=== PATIENT | female | born 1960 | race Caucasian/White ===

== ENCOUNTER 2017-01-10 19:45 | Observation (INO) | payer BC ==
[~2017-01-10] VITALS: Ht 157.5 cm; Wt 85.0 kg
[2017-01-10 19:55] VITALS: BP 185/97; PULSE 73; RESP 16; TEMP 98.3; O2SAT 96
--- NOTE | 2017-01-10 20:06 | PD ---
HPI Chief Complaint: Altered Mental Status Time Seen by Provider: 19:57 Travel History International Travel<30 days: No Contact w/Intl Traveler<30days: No Traveled to known affect area: No History of Present Illness HPI 56yo F with PMH of HTN brought in by EVAC for altered mental status. As per EVAC, pt's mother visited her today and states she is not herself. Pt states she has been having vivid dreams. States she does not remember the EVAC coming to her house and does not remember what she did today. Pt is AAOx3 and denies any fever, headache, visual changes, chest pain, sob, vomiting, abdominal pain, focal weakness or numbness. Pt does have some nausea. Pt has never been here before and denies any suicidal or homicidal ideation, visual or auditory hallucinations. Denies any drugs or alcohol. EVAC states last normal was 2 days ago when her mother saw her. PFSH Past Medical History Hypertension: Yes Tetanus Vaccination: Unknown Influenza Vaccination: No ?: Not Past Surgical History Surgical History: No Previous Surgery Social History Alcohol Use: No Tobacco Use: No Substance Use: No Allergies-Medications (Allergen,Severity, Reaction): Coded Allergies: [place] (Verified Allergy, Severe, 01/10/17) Reported Meds & Prescriptions Reported Meds & Active Scripts Active Active Prescriptions or Reported Medications Unobtainable Review of Systems Except as stated in HPI: all other systems reviewed are Neg Physical Exam Narrative GENERAL: 56yo F not in distress. SKIN: Warm and dry. HEAD: Atraumatic. Normocephalic. EYES: Pupils equal and round at 3mm. EOMI. ENT: No nasal bleeding or discharge. Mucous membranes pink and moist. NECK: Trachea midline. No JVD. CARDIOVASCULAR: Regular rate and rhythm. No murmur appreciated. RESPIRATORY: No accessory muscle use. Clear to auscultation. Breath sounds equal bilaterally. GASTROINTESTINAL: Abdomen soft, non-tender, nondistended. No rebound tenderness or guarding. MUSCULOSKELETAL: No obvious deformities. No clubbing. No cyanosis. No edema. NEUROLOGICAL: Awake and alert. No obvious cranial nerve deficits. Motor grossly within normal limits. Normal speech. Data Data Last Documented VS Vital Signs Date Time Temp Pulse Resp B/P Pulse Ox O2 Delivery O2 Flow Rate FiO2 01/10/17 19:57 Room Air 01/10/17 19:55 98.3 73 16 185/97 96 Orders Ammonia (01/10/17 19:59) Basic Metabolic Panel (Bmp) (01/10/17 19:59) Complete Blood Count With Diff (01/10/17 19:59) Prothrombin Time / Inr (Pt) (01/10/17 19:59) Act Partial Throm Time (Ptt) (01/10/17 19:59) Thyroid Stimulating Hormone (01/10/17 19:59) Urinalysis - C+S If Indicated (01/10/17 19:59) Ct Brain W/O Iv Contrast(Rout) (01/10/17 19:59) Blood Glucose (01/10/17 19:59) Ecg Monitoring (01/10/17 19:59) Iv Access Insert/Monitor (01/10/17 19:59) Drug Screen, Random Urine (01/10/17 19:59) Alcohol (Ethanol) (01/10/17 19:59) Consult Neurology (01/10/17 ) Consult Psychiatry (01/10/17 ) (Hub Use Only)Inp Phy Cons/Ref (01/10/17 ) (Hub Use Only)In Phy Cons/Ref (01/10/17 ) Place In Observation (01/10/17 ) Vital Signs (Adult) Q4H (01/10/17 22:08) Neuro Checks Q4H (01/10/17 22:08) Activity Oob With Assistance (01/10/17 22:08) Diet Heart Healthy (01/11/17 Breakfast) Sodium Chloride 0.9% Flush (Ns Flush) (01/10/17 22:15) Sodium Chloride 0.9% Flush (Ns Flush) (01/11/17 09:00) Case Management Consult (01/10/17 22:08) Scd Bilateral/Knee High SRIRAM.BID (01/10/17 22:08) Naloxone Inj (Narcan Inj) (01/10/17 22:15) Admit Order (Ed Use Only) (01/10/17 22:08) Aspirin (Aspirin) (01/10/17 22:15) Labs Laboratory Tests Test 01/10/17 01/10/17 01/10/17 20:05 21:00 22:00 White Blood Count 9.6 TH/MM3 Red Blood Count 4.64 MIL/MM3 Hemoglobin 14.2 GM/DL Hematocrit 41.1 % Mean Corpuscular Volume 88.6 FL Mean Corpuscular Hemoglobin 30.7 PG Mean Corpuscular Hemoglobin 34.6 % Concent Red Cell Distribution Width 12.9 % Platelet Count 255 TH/MM3 Mean Platelet Volume 9.9 FL Neutrophils (%) (Auto) 74.8 % Lymphocytes (%) (Auto) 17.9 % Monocytes (%) (Auto) 4.9 % Eosinophils (%) (Auto) 1.9 % Basophils (%) (Auto) 0.5 % Neutrophils # (Auto) 7.2 TH/MM3 Lymphocytes # (Auto) 1.7 TH/MM3 Monocytes # (Auto) 0.5 TH/MM3 Eosinophils # (Auto) 0.2 TH/MM3 Basophils # (Auto) 0.0 TH/MM3 CBC Comment DIFF FINAL Differential Comment Sodium Level 138 MEQ/L Potassium Level 4.1 MEQ/L Chloride Level 104 MEQ/L Carbon Dioxide Level 28.2 MEQ/L Anion Gap 6 MEQ/L Blood Urea Nitrogen 15 MG/DL Creatinine 0.78 MG/DL Estimat Glomerular Filtration 76 ML/MIN Rate Random Glucose 113 MG/DL Calcium Level 9.2 MG/DL Ammonia LESS THAN 10 MCMOL/L Thyroid Stimulating Hormone 0.942 uIU/ML 3rd Gen Ethyl Alcohol Level LESS THAN 3 MG/DL Urine Color YELLOW Urine Turbidity CLEAR Urine pH 6.0 Urine Specific [place] 1.012 Urine Protein NEG mg/dL Urine Glucose (UA) NEG mg/dL Urine Ketones TRACE mg/dL Urine Occult Blood NEG Urine Nitrite NEG Urine Bilirubin NEG Urine Urobilinogen LESS THAN 2.0 MG/DL Urine Leukocyte Esterase NEG Urine RBC 1 /hpf Urine WBC LESS THAN 1 /hpf Urine Squamous Epithelial 2 /hpf Cells Urine Mucus FEW /lpf Microscopic Urinalysis Comment CATH-CULT NOT IND Urine Opiates Screen NEG Urine Barbiturates Screen NEG Urine Amphetamines Screen NEG Urine Benzodiazepines Screen NEG Urine Cocaine Screen NEG Urine Cannabinoids Screen POS MDM Medical Decision Making Medical Screen Exam Complete: Yes Emergency Medical Condition: Yes Interpretation(s) EKG: NSR 68bpm. Normal axis. No ST segment elevation or depression. Differential Diagnosis Short term memory loss vs. CVA vs. conversion disorder vs. electrolyte abnormality Narrative Course 56yo F with short term memory loss. As per mother, she called her at 3pm today and came to her house at about 6pm and the pt does not remember the mother calling her. She states she does not remember EVAC bringing her here. Mother states she was normal Monday night when she last saw her. I went to reevaluate her and she does not remember meeting me earlier. No focal neurologic deficits. CT brain negative. Labs reviewed, no leukocytosis. Glucose 113. Ammonia negative. Blood alcohol negative. Neurology and psych consult placed. Discussed with Dr. Jiménez and accepted for observation. Pt given aspirin 325mg PO. Diagnosis Primary Impression: Transient amnesia Admitting Information Admitting Physician Requests: Observation Scripts Unable to Obtain Active Prescriptions or Reported Meds Silvia Rivera DO Jan 10, 2017 20:06
[2017-01-10 20:24] LABS: AUTOMATED NEUTROPHIL # 7.2 TH/MM3 (1.8-7.7); BASOPHIL % 0.5 % (0.0-2.0); EOSINOPHIL # 0.2 TH/MM3 (0-0.4); EOSINOPHIL % 1.9 % (0.0-4.0); HEMATOCRIT 41.1 % (35.0-46.0); LYMPH % 17.9 % (9.0-44.0); LYMPHOCYTE # 1.7 TH/MM3 (1.0-4.8); MEAN CELL VOLUME 88.6 FL (80.0-100.0); MEAN CORPUSCULAR HEMOGLOBIN 30.7 PG (27.0-34.0); MEAN CORPUSCULAR HGB CONC 34.6 % (32.0-36.0); MONO % 4.9 % (0.0-8.0); NEUT % 74.8 % (16.0-70.0); PLATELET COUNT 255 TH/MM3 (150-450); RED BLOOD COUNT 4.64 MIL/MM3 (4.00-5.30); RED CELL DISTRIBUTION WIDTH 12.9 % (11.6-17.2); WHITE BLOOD COUNT 9.6 TH/MM3 (4.0-11.0)
[2017-01-10 20:30] LABS: HEMO FLAGS DIFF FINAL
--- NOTE | 2017-01-10 20:32 | RADRPT ---
EXAM DATE/TIME: 01/10/2017 20:20 [facility] COMPARISON: No previous studies available for comparison. INDICATIONS : Altered mental status. RADIATION DOSE: 36.77 CTDIvol (mGy) MEDICAL HISTORY : Hypertension. SURGICAL HISTORY : None. ENCOUNTER: Initial ACUITY: 1 day PAIN SCALE: 0/10 LOCATION: cranial TECHNIQUE: Multiple contiguous axial images were obtained of the head. Using automated exposure control and adj ustment of the mA and/or kV according to patient size, radiation dose was kept as low as reasonably a chievable to obtain optimal diagnostic quality images. FINDINGS: CEREBRUM: The ventricles are normal for age. No evidence of midline shift, mass lesion, hemorrhage or acute in farction. No extra-axial fluid collections are seen. POSTERIOR FOSSA: The cerebellum and brainstem are intact. The 4th ventricle is midline. The cerebellopontine angle i s unremarkable. EXTRACRANIAL: The visualized portion of the orbits is intact. SKULL: The calvaria is intact. No evidence of skull fracture. CONCLUSION: No acute disease. Kendell Victoria MD on January 10, 2017 at 20:31 Board Certified Radiologist. This report was verified electronically.
[2017-01-10 21:40] LABS: ANION GAP 6 MEQ/L (5-15); BICARBONATE 28.2 MEQ/L (21.0-32.0); BLOOD UREA NITROGEN 15 MG/DL (7-18); CHLORIDE 104 MEQ/L (98-107); GLOMERULAR FILTRATION RATE 76 ML/MIN (>89); POTASSIUM 4.1 MEQ/L (3.5-5.1); SODIUM (NA) 138 MEQ/L (136-145)
[2017-01-10] MEDS ORDERED: NALOXONE HCL 0.4 MG/ML AMP IV PRN (22:15)
[2017-01-10] MEDS ORDERED: SODIUM CHLORIDE 0.9% FLUSH 5 ML FLUSH FLUSH PRN (22:15)
[2017-01-10] MEDS ORDERED: ASPIRIN 325 MG TAB PO ONE (22:15)
[2017-01-10 22:24] LABS: BLOOD, URINE NEG (NEG); GLUCOSE,URINE NEG (NEG); KETONE, URINE TRACE mg/dL (NEG); MUCUS URINE FEW /lpf (OCC); NITRITE,URINE NEG (NEG); SQUAMOUS EPITHELIAL CELL URINE 2 /hpf (0-5); URINE COLOR YELLOW (YELLW/STRAW)
[2017-01-10 22:25] LABS: COMMENT (UR) CATH-CULT NOT IND; CULTURE IF INDICATED CATH CULTURE NOT IND
[2017-01-10 22:35] LABS: AMPHETAMINE, URINE NEG (NEG); BARBITURATES, URINE NEG (NEG); COCAINE, URINE NEG (NEG)
[2017-01-10 22:57] LABS: APTT (PATIENT) 21.8 SEC (24.3-30.1); PROTHROMBIN TIME - PATIENT 10.7 SEC (9.8-11.6)
[2017-01-11 01:39] VITALS: BP 132/78; PULSE 82; RESP 16; O2SAT 100
[2017-01-11] MEDS ORDERED: PROP20TA3 PO (01:45)
[2017-01-11] MEDS ORDERED: LISI30TA4 PO (01:45)
[2017-01-11] MEDS ORDERED: CELE1CAP8 PO (01:45)
[2017-01-11] MEDS ORDERED: ORPH100T PO (01:45)
[2017-01-11] MEDS ORDERED: ULTR50TA5 PO ×2 (01:45→17:05)
[2017-01-11] MEDS ORDERED: SUMA100T2 PO (01:45)
[2017-01-11] MEDS ORDERED: OMEP20TA PO (01:45)
[2017-01-11] MEDS ORDERED: DULO1CAP3 PO (01:45)
[2017-01-11] MEDS ORDERED: TRAZ50TA12 PO (01:45)
[2017-01-11 06:00] VITALS: BP 134/84; PULSE 82; RESP 16; O2SAT 98
[2017-01-11] MEDS ORDERED: PANTOPRAZOLE SOD 20 MG DELAYED RELEASE TAB PO SCH (09:00)
[2017-01-11] MEDS ORDERED: SODIUM CHLORIDE 0.9% FLUSH 5 ML FLUSH FLUSH SCH (09:00)
[2017-01-11] MEDS ORDERED: PROPRANOLOL HCL 20 MG TAB PO SCH (09:00)
[2017-01-11] MEDS ORDERED: LISINOPRIL 10 MG TAB PO SCH (09:00)
[2017-01-11 10:02] VITALS: BP 159/89; PULSE 92; RESP 20; O2SAT 98
[2017-01-11] MEDS ORDERED: FLUT1SPR5 EACH NARE (10:16)
[2017-01-11] MEDS ORDERED: GUAI400T8 PO (10:16)
[2017-01-11] MEDS ORDERED: ROSU40 PO (10:17)
[2017-01-11] MEDS ORDERED: BENA25TA3 PO (10:18)
[2017-01-11] MEDS ORDERED: traMADol HCL 50 MG TAB PO PRN (10:45)
--- NOTE | 2017-01-11 10:47 | HHI.HP ---
[facility] Service [facility] Primary Care Physician No Primary Care Physician Admission Diagnosis Transient amnesia Diagnoses: Chief Complaint: Memory loss Travel History International Travel<30 Days: No Contact w/Intl Traveler <30 Da: No Traveled to Known Affected Are: No History of Present Illness 56-year-old female with past medical history HTN, HLD, depression, fibromyalgia , GERD, migraines, sinusitis who was brought in for altered mental status. The patient does not really recall the events that brought her to the hospital. 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 She has no acute medical complaints today. She is requesting her home medications for chronic sinusitis , headache, fibromyalgia pain. She does smoke marijuana every night for sleep, no other substance use. Denies any family history of Alzheimer's or Parkinson' s. No suicidal or homicidal ideation. Review of Systems Except as stated in HPI: all other systems reviewed are Neg Past Family Social History Past Medical History Hypertension Hyperlipidemia Depression/insomnia Fibromyalgia/chronic pain GERD Migraines Chronic sinusitis Past Surgical History Left leg distal osteochondroma removal [place] teeth removal Reported Medications Benadryl Allergy (Diphenhydramine HCl) 25 Mg Tab 50 Mg PO HS Crestor (Rosuvastatin Calcium) 40 Mg Tab 40 Mg PO HS Flonase Allergy Relief Nasal [place] (Fluticasone Nasal [place]) 50 Mcg/Act [place] 50 Mcg EACH NARE DAILY Guaifenesin 400 Mg Tab 1,200 Mg PO BID Celecoxib 200 Mg Cap 200 Mg PO BID Sumatriptan (Sumatriptan Succinate) 100 Mg Tab 100 Mg PO ONCE PRN If a satisfactory response has not been obtained at 2 hours, a second dose may be administered Orphenadrine ER 12 HR (Orphenadrine Citrate) 100 Mg Tab 100 Mg PO Q12HR Propranolol (Propranolol HCl) 20 Mg Tab 20 Mg PO Q12HR Omeprazole 20 Mg Tab 20 Mg PO DAILY Lisinopril 30 Mg Tab 30 Mg PO DAILY Duloxetine DR (Duloxetine HCl) 60 Mg Capdr 60 Mg PO DAILY Ultram (Tramadol HCl) 50 Mg Tab 200 Mg PO Q6H PRN Trazodone (Trazodone HCl) 50 Mg Tab 50 Mg PO HS Allergies: Coded Allergies: [place] (Verified Allergy, Severe, 01/11/17) Active Ordered Medications Current Medications Medications (Trade) Dose Ordered Sig/Nicola Route Start Time Stop Time Status Last Admin (NS Flush) 2 ml UNSCH PRN FLUSH 01/10/17 22:15 (NS Flush) 2 ml BID FLUSH 01/11/17 09:00 01/11/17 09:14 (Narcan Inj) 0.4 mg UNSCH PRN IV 01/10/17 22:15 (Prinivil) 30 mg DAILY PO 01/11/17 09:00 01/11/17 10:13 (Protonix) 20 mg DAILY PO 01/11/17 09:00 01/11/17 10:12 (Inderal) 20 mg Q12HR PO 01/11/17 09:00 01/11/17 10:12 Family History Father had rheumatoid arthritis, CVA, AAA Mother had TIA Social History Denies alcohol or tobacco use Marijuana use Physical Exam Vital Signs Vital Signs Date Time Temp Pulse Resp B/P Pulse Ox O2 Delivery O2 Flow Rate FiO2 01/11/17 10:02 92 20 159/89 98 Room Air 01/11/17 06:00 82 16 134/84 98 Room Air 01/11/17 01:39 82 16 132/78 100 Room Air 01/10/17 19:57 Room Air 01/10/17 19:55 98.3 73 16 185/97 96 Physical Exam GENERAL: Well-developed well-nourished. In no acute distress. SKIN: Warm and dry. No lesions noted. HEENT: Normocephalic. Pupils equal and round. EOMs intact. Mucous membranes pink and moist. CARDIOVASCULAR: Regular rate and rhythm. No murmur appreciated. RESPIRATORY: No accessory muscle use. Clear to auscultation. Breath sounds equal bilaterally. GASTROINTESTINAL: Abdomen soft, non-tender, nondistended. Bowel sounds x4. MUSCULOSKELETAL: No obvious deformities. No clubbing or cyanosis. No edema. NEUROLOGICAL: Awake and alert and oriented. No focal neurological deficits. Moves upper and lower extremities spontaneously. Normal speech. Strength 5/5. Cranial nerves intact. PSYCHIATRIC: Pleasant mood and affect; insight and judgment normal. No SI or HI. Mini-Mental status exam performed personally by Dr. Chavez, Laboratory Laboratory Tests Test 01/10/17 01/10/17 01/10/17 01/10/17 20:05 21:00 22:00 22:15 White Blood Count 9.6 Red Blood Count 4.64 Hemoglobin 14.2 Hematocrit 41.1 Mean Corpuscular Volume 88.6 Mean Corpuscular Hemoglobin 30.7 Mean Corpuscular Hemoglobin 34.6 Concent Red Cell Distribution Width 12.9 Platelet Count 255 Mean Platelet Volume 9.9 Neutrophils (%) (Auto) 74.8 Lymphocytes (%) (Auto) 17.9 Monocytes (%) (Auto) 4.9 Eosinophils (%) (Auto) 1.9 Basophils (%) (Auto) 0.5 Neutrophils # (Auto) 7.2 Lymphocytes # (Auto) 1.7 Monocytes # (Auto) 0.5 Eosinophils # (Auto) 0.2 Basophils # (Auto) 0.0 CBC Comment DIFF FINAL Differential Comment Sodium Level 138 Potassium Level 4.1 Chloride Level 104 Carbon Dioxide Level 28.2 Anion Gap 6 Blood Urea Nitrogen 15 Creatinine 0.78 Estimat Glomerular Filtration 76 Rate Random Glucose 113 Calcium Level 9.2 Ammonia LESS THAN 10 Thyroid Stimulating Hormone 0.942 3rd Gen Ethyl Alcohol Level LESS THAN 3 Urine Color YELLOW Urine Turbidity CLEAR Urine pH 6.0 Urine Specific [place] 1.012 Urine Protein NEG Urine Glucose (UA) NEG Urine Ketones TRACE Urine Occult Blood NEG Urine Nitrite NEG Urine Bilirubin NEG Urine Urobilinogen LESS THAN 2.0 Urine Leukocyte Esterase NEG Urine RBC 1 Urine WBC LESS THAN 1 Urine Squamous Epithelial 2 Cells Urine Mucus FEW Microscopic Urinalysis Comment CATH-CULT NOT IND Urine Opiates Screen NEG Urine Barbiturates Screen NEG Urine Amphetamines Screen NEG Urine Benzodiazepines Screen NEG Urine Cocaine Screen NEG Urine Cannabinoids Screen POS Prothrombin Time 10.7 Prothromb Time International 1.0 Ratio Activated Partial 21.8 Thromboplast Time Result Diagram: 01/10/17200401/10/172099 Imaging Last Impressions Head CT 01/10/171958 Signed Impressions: Service Date/Time: Tuesday, January 10, 2017 20:20 - CONCLUSION: No acute disease. Kendell Victoria MD Assessment and Plan Problem List: (1) At risk for polypharmacy ICD Code: Z91.89 Status: Acute (2) Transient amnesia ICD Code: R41.3 Status: Acute (3) Memory difficulties ICD Code: R41.3 Status: Acute Assessment and Plan 56-year-old female with past medical history HTN, HLD, depression, fibromyalgia , GERD, migraines, sinusitis who was brought in for altered mental status Memory loss, acute on chronic: Unclear etiology. Possibly secondary to overmedication and MJ. Laboratory workup essentially unremarkable to date. Head CT revealed no acute process. Neurology consulted, appreciate input, ordered a brain MRI, neck MRA, and EEG. Check B12 and RPR. Neuro checks. Chronic pain/fibromyalgia: Patient requesting home tramadol 200 mg daily. We will decrease the 50 mg every 8 hours as needed to avoid sedation. Hold Norflex as well, ideally this will be when necessary instead of scheduled at home. Continue Celebrex. Chronic sinusitis: Continue fluticasone and guaifenesin. Depression/insomnia: Hold home fluoxetine, trazodone, Benadryl for now with possible medication effect as above. Psychiatry has been consulted. Hypertension/hyperlipidemia: BP is reasonably controlled. Continue home lisinopril and propranolol. Continue statin. DVT prophylaxis: SCDs GI prophylaxis: PPI Disposition: The patient feels well and is asking to go home. Discussed with the patient, will need neurology clearance prior to discharge. Addendum 1700: The patient was seen by neurology, who recommended MRI/MRA and EEG. EEG normal. MRI with nonspecific, likely benign finding, recommended repeat MRI in 6 months, patient informed. Neck MRA with no stenosis. Neurology recommended if these findings were negative, to follow up with him as outpatient in couple of weeks. Discussed with Dr. Welch, within the ED from psychiatry perspective. Discussed with Dr. Chavez, will discharge today. Discussed with patient and family and RN at bedside happy to be discharged today. Requested PCP referral as the patient's PCP is in [place]. Home med list was updated, patient educated on polypharmacy, med rec adjusted and patient informed to follow-up with PCP for continued monitoring. Written by Doe Daniels, acting as scribe for Dr. Chavez on 01/11/17 at 10:47. The documentation accurately reflects the work performed [id number] by me on at 10:47 Discharge patient to home Condition on discharge: Improved Regular Diet as tolerated Ad Cici activity Rx written: None. Tramadol changed to 100mg Q6hrs, reduced from 200mg Q6hrs. Follow-up with primary care physician within a week and Neurology within two weeks. Discussed Condition With Patient, ED Doe Burton Jan 11, 2017 10:47 Donte Chavez DO Jan 11, 2017 22:41
[2017-01-11] MEDS ORDERED: guaiFENesin E.R. 600 MG TAB PO SCH (11:00)
[2017-01-11] MEDS ORDERED: FLUTICASONE PROPIONATE 50 MCG/ACT 16 GM NASAL SPRAY EACH NARE SCH (11:00)
--- NOTE | 2017-01-11 11:50 | MB ---
cc: PAULO CAMARILLO M.D. DATE OF CONSULTATION: 01/11/2017 REASON FOR CONSULTATION A 56-year-old woman seen with altered mental status and memory loss. HISTORY OF PRESENT ILLNESS She came in yesterday. I have limited information on her. It is described that her mother visited her and the patient did not seem to be herself. She has been having vivid dreams. The patient only knows that she was apparently walking in a [place]de[place]sac where she lives and she does not know anymore than that. She lives alone with her dog. She has a who lives in [place]. She apparently spends six months here and six months there. There is a history of some depression and she takes Cymbalta for that, but does not follow with a psychiatrist. She takes lisinopril and Inderal as well. IMAGING The patient's CT brain was normal. LABORATORY CBC was normal. Chemistry was essentially normal with a glucose of 113. Urine toxicology positive for cannabinoids. Urinalysis negative. NEUROLOGIC EXAMINATION Neurologic exam is essentially normal at this point. She is alert, pleasant and oriented in no distress. Ocular movements and visual noel full. Reflexes 1-2+ throughout and plantar response is flexor. ASSESSMENT Though I have some limited information on what happened, it is likely that she had transient global amnesia. RECOMMENDATIONS Will request an MRI brain, MRA neck or carotid ultrasound on this patient and if these studies are unremarkable then she could be discharged to home with follow-up in the office in a couple of weeks. An EEG will be requested as well. Thank you for asking us to assist in her care. MD MOHSEN Casas/BT /10:39 AM /11:42 AM
[2017-01-11] MEDS ORDERED: CELECOXIB 200 MG CAP PO SCH (12:00)
--- NOTE | 2017-01-11 12:42 | MG ---
cc: AUDELIA LIN Lab No: [id number] Date: 01/11/2017 Age: Sex: F Race: TECHNIQUE 17-channel EEG. DESCRIPTION: The background rhythm shows a symmetrical alpha rhythm frequency of 8-9 Hz, amplitude is about 20 microvolts. There is fairly frequent beta activity which is probably medication effect. Sharp activity which appears to be mainly muscle artifact. I do not see any true epileptiform features. Hyperventilation was done with no change in background rhythm. Photic results in a fairly symmetric driving response. INTERPRETATION Normal EEG. There is sharp activity but I think this is mainly muscle artifact, not truly epileptiform in nature. MD JOSE Truong/ETHEL /12:35 PM /12:39 PM
[2017-01-11 13:23] VITALS: BP 164/84; PULSE 83; RESP 15; O2SAT 99
--- NOTE | 2017-01-11 15:16 | RADRPT ---
EXAM DATE/TIME: 01/11/2017 14:15 [facility] COMPARISON: CT BRAIN W/O CONTRAST, January 10, 2017, 20:20. INDICATIONS : Memory loss. CONTRAST: 20 cc Omniscan (gadodiamide) IV MEDICAL HISTORY : Hypertension. SURGICAL HISTORY : Left knee surgery. ENCOUNTER: Initial ACUITY: 2 day PAIN SCORE: 0/10 LOCATION: head TECHNIQUE: Multiplanar, multisequence MRI of the brain was performed both prior to and following the administrat ion of paramagnetic contrast. FINDINGS: The examination demonstrates a 1.2 x 1.4 cm well-circumscribed extra-axial mass along the medial aspe ct of the anterior temporal lobe on the right. There is no evidence of contrast enhancement within th is following contrast administration. I believe this probably represents an exostosis off the medial aspect of the sphenoid. The lack of contrast enhancement of this in the extra-axial location which quiroz ggests it is benign. I would recommend this patient undergo followup examination in 6 months. No abnormal T2 signals in the white matter. The findings indicate acute cortical infarction are prese nt. The appearance of the posterior fossa is unremarkable. No findings to indicated parenchymal hemorrhage are seen. No enhancing lesions are present on the pos tcontrast images. CONCLUSION: 1. There is a 1.2 x 1.4 cm well-circumscribed extra-axial lesion along the medial aspect of the right anterior temporal lobe. This does not enhance. I believe this is simply prominence of the bony sphen oid in this area though I do not see it on the noncontrast CT images. The fact that there is no enhan cement and it is extra-axial which suggests it is benign. Followup MRI in 6 months to ensure stabilit y would be warranted. If more immediate characterization is desired thin section CT imaging through t he orbits could be performed. Bryan Mcbride MD on January 11, 2017 at 14:52 Board Certified Radiologist. This report was verified electronically.
--- NOTE | 2017-01-11 15:28 | RADRPT ---
EXAM DATE/TIME: 01/11/2017 14:15 [facility] COMPARISON: No previous studies available for comparison. INDICATIONS : Memory loss CONTRAST: 20 cc Omniscan (gadodiamide) IV MEDICAL HISTORY : Hypertension. SURGICAL HISTORY : Left knee surgery. ENCOUNTER: Initial ACUITY: 2 day PAIN SCORE: 0/10 LOCATION: head Percent stenosis is calculated using the diameter of the stenotic region over the diameter of the nor mal distal internal carotid artery. TECHNIQUE: Bolus infused MRA of the extracranial circulation was performed using a neurovascular coil. Post pro cessing was performed including rotationg subvolume maximum intensity projections of each carotid art ana, rotating full volume maximum intensity projections of both carotid arteries, sagittal and dejesus l sliding thin slab reformations of each carotid artery, and left oblique sliding thin slab reformati on through the aortic arch to include the origin of the arch branch vessels. FINDINGS: AORTIC ARCH: There is a three vessel origin of the great vessels from the aorta. No evidence of ostial narrowing. RIGHT CAROTID: The common carotid artery is intact. The carotid bulb has a normal configuration without ulceration or narrowing. The internal carotid artery lumen is smooth without stenosis. The external carotid ar halina is intact. LEFT CAROTID: The common carotid artery is intact. The carotid bulb has a normal configuration without ulceration or narrowing. The internal carotid artery lumen is smooth without stenosis. The external carotid ar halina is intact. VERTEBRALS: The vertebral arteries have a symmetric diameter. No stenotic lesions are seen. CONCLUSION: 1. The carotid and vertebral circulation is widely patent bilaterally. Bryan Mcbride MD on January 11, 2017 at 15:25 Board Certified Radiologist. This report was verified electronically.
[2017-01-11 15:39] VITALS: BP 119/51; PULSE 76; RESP 18; TEMP 96.9; O2SAT 96
[2017-01-11] MEDS ORDERED: GADODIAMIDE PF 287 MG/ML 20 ML VIAL (for RAD MRI) IV ONE (15:42)
--- NOTE | 2017-01-11 16:36 | PD.CONS ---
Provisional Diagnosis Admission Date Jan 10, 2017 at 22:10 [place] I. Transient global amnesia, cannabis use disorder [place] II. Deferred [place] III. HTN, fibromyalgia [place] IV. Under observation [place] V. 55 History of Present Illness Service Psychiatry Consult Requested By Primary Care Physician No Primary Care Physician HPI The patient is 56-year-old woman, domicile with her , retired, without any previous psychiatric history, no previous psychiatric hospitalizations, no previous suicide attempts, with past medical history HTN, HLD, depression, fibromyalgia, GERD, migraines, sinusitis who was brought in for altered mental status. The patient was unable to recall nothing of what happened yesterday to her, she says that she doesn't even recall how she arrived to the hospital. On psychiatric evaluation patient was found calm and cooperative, also very pleasant. Patient states that she does not remember anything what happened yesterday her life. She was told by her mother that yesterday she was asking for her cat that a year ago, and she was acting very bizarrely and confused. For example, yesterday her mother asked her if she was going in a cruise with her best friend in March and she said that she doesn't remember to person and she is not going any cruise, even though when she has been planning this for months and she talks with her mother about these everyday. As of this moment the patient denies any depressive symptoms, she described her mood as fine, she denies anxiety, she denies past or current symptomatology of bigg, she denies perceptual disturbances. He denies suicidal or homicidal ideation, she denies visual and auditory hallucinations. Patient is now fully oriented 3, MMS is 28/30, with just a little bit of impairment in recent recall, but her cognition seems to be intact at this moment. Patient reports daily use of marijuana, denies the use of other illicit drugs and alcohol. Review of Systems Constitutional: DENIES: Diaphoretic episodes, Fatigue, Fever, Weight gain, Weight loss, Chills, Dizziness, Change in appetite, Night Sweats Endocrine: DENIES: Abnorml menstrual pattern, Heat/cold intolerance, Polydipsia , Polyuria, Polyphagia Eyes: DENIES: Blurred vision, Diplopia, Eye inflammation, Eye pain, Vision loss , Photosensitivity, Double Vision Respiratory: DENIES: Apneas, Cough, Snoring, Wheezing, Hemoptysis, Sputum production, Shortness of breath Cardiovascular: DENIES: Chest pain, Palpitations, Syncope, Dyspnea on Exertion , PND, Lower Extremity Edema, Orthopnea, Claudication Gastrointestinal: DENIES: Abdominal pain, Black stools, Bloody stools, Constipation, Diarrhea, Nausea, Vomiting, Difficulty Swallowing, Anorexia Musculoskeletal: DENIES: Joint pain, Muscle aches, Stiffness, Joint Swelling, Back pain, Neck pain Integumentary: DENIES: Abnormal pigmentation, Pruritus, Rash, Nail changes, Breast masses, Breast skin changes, Nipple discharge Hematologic/lymphatic: DENIES: Bruising, Lymphadenopathy Immunologic/allergic: DENIES: Eczema, Urticaria Neurologic: DENIES: Abnormal gait, Headache, Localized weakness, Paresthesias, Seizures, Speech Problems, Tremor, Poor Balance Psychiatric: DENIES: Anxiety, Confusion, Mood changes, Depression, Hallucinations, Agitation, Suicidal Ideation, Homicidal Ideation, Delusions Past Family Social History Coded Allergies: [place] (Verified Allergy, Severe, 01/11/17) Reported Medications Diphenhydramine (Benadryl Allergy)25 Mg Tab50 Mg PO HS Ref 0 01/11/17 Rosuvastatin (Crestor)40 Mg Tab40 Mg PO HS #30 TAB Ref 0 01/11/17 Fluticasone Nasal [place] (Flonase Allergy Relief Nasal [place])50 Mcg/Act Spray50 Mcg EACH NARE DAILY #1 BOTTLE Ref 0 01/11/17 Guaifenesin 400 Mg Tab1,200 Mg PO BID 01/11/17 Celecoxib 200 Mg [id number] Mg PO BID Ref 0 01/11/17 Sumatriptan 100 Mg [id number] Mg PO ONCE PRN (MIGRAINE HEADACHE) Ref 0 If a satisfactory response has not been obtained at 2 hours, a second dose may be administered 01/11/17 Orphenadrine ER 12 HR 100 Mg [id number] Mg PO Q12HR #60 TAB Ref 0 01/11/17 Propranolol 20 Mg Tab20 Mg PO Q12HR #60 TAB Ref 0 01/11/17 Omeprazole 20 Mg Tab20 Mg PO DAILY #30 TAB Ref 0 01/11/17 Lisinopril 30 Mg Tab30 Mg PO DAILY #30 TAB Ref 0 01/11/[address] 60 Mg Capdr60 Mg PO DAILY #30 CAP Ref 0 01/11/17 Tramadol (Ultram)50 Mg [id number] Mg PO Q6H PRN (PAIN) Ref 0 01/11/17 Trazodone 50 Mg Tab50 Mg PO HS #30 TAB Ref 0 01/11/17 Current Medications Medications (Trade) Dose Ordered Sig/Nicola Route Start Time Stop Time Status Last Admin (NS Flush) 2 ml UNSCH PRN FLUSH 01/10/17 22:15 (NS Flush) 2 ml BID FLUSH 01/11/17 09:00 01/11/17 09:14 (Narcan Inj) 0.4 mg UNSCH PRN IV 01/10/17 22:15 (Prinivil) 30 mg DAILY PO 01/11/17 09:00 01/11/17 10:13 (Protonix) 20 mg DAILY PO 01/11/17 09:00 01/11/17 10:12 (Inderal) 20 mg Q12HR PO 01/11/17 09:00 01/11/17 10:12 (Flonase [place] Spr) 1 spray DAILY EACH NARE 01/11/17 11:00 (Mucinex Er) 1,200 mg BID PO 01/11/17 11:00 01/11/17 13:19 (Lipitor) 80 mg HS PO 01/11/17 21:00 (Ultram) 50 mg Q8H PRN PO 01/11/17 10:45 01/11/17 13:18 (CeleBREX) 200 mg BID PO 01/11/17 12:00 Family History She denies Social History Patient was born and raised in [place], she lives 6 months in [place] and 6 months in [place] now with her , she has 1 adult kids, she is retired, she worked as a computer security manager, her highest level of education is a college degree Physical Exam Vital Signs Vital Signs Date Time Temp Pulse Resp B/P Pulse Ox O2 Delivery O2 Flow Rate FiO2 01/11/17 15:39 96.9 76 18 119/51 96 01/11/17 13:23 Room Air Mental Status Examination Appearance woman, age appearing, good hygiene, [facility], calm, cooperative and pleasant Speech: Unremarkable Orientation: x3 Memory: Unremarkable Thought Process: Logical Thought Content: Unremarkable Hallucination Type: None Suicidal Ideation: No Homicidal Ideation: No Previous Homicide Attempts: No Judgement: WNL Affect: Good Affect if Inappropriate: Flat Mood: Appropriate Motor Activity: Normal gait Assessment & Plan Problem List: (1) Transient amnesia Assessment & Plan: At the moment of this evaluation the patient does not report any symptomatology of depression, anxiety, bigg or psychosis. Patient denies suicidal ideation, she denies visual and auditory hallucinations. Patient is fully oriented 3, MMS is 28/30. Described episode of retrograde memory loss could be related with underline neurological condition such as TIA, seizures or transient global amnesia. Full neurological workup is recommended including EEG and MRI. No psychiatric intervention needed. Consult appreciated. ICD Code: R41.3 Assessment & Plan Estimated LOS: Magnus Stewart MD Jan 11, 2017 16:36
[2017-01-11] MEDS ORDERED: GABA100C4 PO (16:48)
[2017-01-11] MEDS ORDERED: ACET500T3 PO (16:53)
[2017-01-11] MEDS ORDERED: PRIL20CA9 PO (16:56)
[2017-01-11] MEDS ORDERED: META800T81 PO (16:59)
[2017-01-11] MEDS ORDERED: IPRA0.06 EACH NARE (16:59)
[2017-01-11] MEDS ORDERED: ATORVASTATIN 80 MG TAB PO SCH (21:00)
--- NOTE | 2017-01-11 22:58 | EKG ---
Date Performed: 01/10/2017 Time Performed: 19:57:38 PTAGE: 56 years EKG: Sinus rhythm NORMAL ECG NO PREVIOUS TRACING DOCTOR: Britt Hameed Interpretating Date/Time 01/11/2017 22:55:03
== END 2017-01-11 18:44 | disposition home or self-care (01) ==
LOC: NEPA 19:45 → NEDA 22:10 → NEDH 01-11 03:43 → NEPGCP 01-11 14:53
PROVIDERS: ADMIT Hospitalist; ATTEND Hospitalist
DX: G45.4 Transient global amnesia (principal); I10 Essential (primary) hypertension; E78.5 Hyperlipidemia, unspecified; F32.9 Major depressive disorder, single episode, unspecified; M79.7 Fibromyalgia; K21.9 Gastro-esophageal reflux disease without esophagitis; J32.8 Other chronic sinusitis; G47.00 Insomnia, unspecified; G43.909 Migraine, unspecified, not intractable, without status migrainosus; R41.82 Altered mental status, unspecified; Z91.89 Other specified personal risk factors, not elsewhere classified
CPT/HCPCS: 70450; 70548; 70553; 80048; 80307; 80320; 81001; 82140; 82607; 84443; 85025; 85610; 85730; 86592; 93005; 95819; 99285; A9579; G0378